=== PATIENT | male | born 1945 | race Caucasian/White ===

== ENCOUNTER 2016-10-22 11:19 | Outpatient (CLI) | payer MEDICARE ==
[2016-10-22 12:38] LABS: #Basophils 0.1 thou/uL (0.0-0.2); #Eosinphils 0.2 thou/uL (0.0-0.7); #Lymphocytes 1.5 thou/uL (1.20-3.40); #Monocytes 0.5 thou/uL (0.11-0.59); %Basophils 1.6 % (0.0-1.0); %Eosinophils 3.6 % (0.0-10.0); %Monocytes 9.3 % (0.0-10.0); Hematocrit 46.2 % (42.0-52.0); Mean Platelet Volume 6.2 fL (7.4-10.4); Red Blood Cell (RBC) Count 4.99 mill/uL (4.70-6.10); White Blood Cell (WBC) Count 5.3 thou/uL (4.8-10.8)
[2016-10-22 12:39] LABS: ALT (SGPT) 31 U/L (0-55); AST (SGOT) 30 U/L (5-34); Alkaline Phosphatase 67 U/L (40-150); Anion Gap 15 mmol/L (10-20); BUN (Urea Nitrogen) 13 mg/dL (8.4-25.7); Bilirubin, Total 2.1 mg/dL (0.2-1.2); Calc. Creatinine Clearance 0 mL/min (70-130); Calcium 9.1 mg/dL (7.8-10.44); Carbon Dioxide 26 mmol/L (23-31); Chloride 108 mmol/L (98-107); Estimated GFR-MDRD 63; Globulin 2.9 g/dL (2.4-3.5); LDL Cholesterol, Calculated 94 mg/dL
== END 2016-10-22 11:20 | disposition home or self-care (01) ==
LOC: BURLAB 11:19
PROVIDERS: ATTEND Family Medicine
DX: Z12.5 Encounter for screening for malignant neoplasm of prostate (principal); J45.909 Unspecified asthma, uncomplicated; E78.5 Hyperlipidemia, unspecified; D64.9 Anemia, unspecified
CPT/HCPCS: 36415; 80053; 80061; 84443; 85025; G0103

== ENCOUNTER 2018-12-30 08:46 | Outpatient (CLI) | payer MEDICARE ==
--- NOTE | 2018-12-30 18:59 | ULT ---
ABDOMINAL AORTA ULTRASOUND 12/30/18 Ultrasonography of the abdominal aorta was done. The maximal diameter of the proximal aorta was 2.31 cm. The mid abdominal aorta was 1.9 cm. The distal abdominal aorta was 1.8 cm. All of these were done on axial imaging. Sagittal images of the aorta showed a maximal diameter of 2. 2 cm proximally. IMPRESSION: Although there was slight dilation of the proximal aorta compared to the remainder, a true focal aneu rysm of concern was not seen. POS: HOME
== END 2018-12-30 08:47 | disposition home or self-care (01) ==
LOC: BURULT 08:46
PROVIDERS: ATTEND Nurse Practitioner
DX: Z13.6 Encounter for screening for cardiovascular disorders (principal)
CPT/HCPCS: 76706

== ENCOUNTER 2019-10-06 11:03 | Emergency (ER) | payer MEDICARE ==
--- NOTE | 2019-10-06 11:48 | RAD ---
Exam:4 views right knee HISTORY: Fall. Pain. COMPARISON: None FINDINGS: Nondisplaced fracture involving the lateral aspect of the patella. Small associated joint e ffusion. Preserved joint spaces. No additional fractures. IMPRESSION: Comminuted, nondisplaced lateral patellar fracture.
== END 2019-10-06 12:40 | disposition home or self-care (01) ==
LOC: BURERS 11:03
DX: S82.044A Nondisplaced comminuted fracture of right patella, initial encounter for closed fracture (principal); W18.30XA Fall on same level, unspecified, initial encounter